=== PATIENT | female | born 1975 | race Caucasian/White ===

== ENCOUNTER 2017-09-01 07:15 | Inpatient (IN) | payer MEDICAID ==
[2017-09-01] MEDS ORDERED: Acetaminophen 500 MG Tab PO ONE (09:45)
[2017-09-01] MEDS ORDERED: Celecoxib 200 MG Cap PO ONE (09:45)
[2017-09-01] MEDS ORDERED: Scopolamine 1.5 MG Transdermal Patch TRDERM SCH (09:45)
[2017-09-01] MEDS ORDERED: Gabapentin 300 MG Cap PO ONE (09:45)
[2017-09-01] MEDS ORDERED: Dextrose 5%-Lactated Ringers 1,000 ML IV SCH (10:15)
[2017-09-01] MEDS ORDERED: cefOXitin 2 GM in Sodium Chloride 0.9% 50 ML IV ONE (11:00)
[2017-09-01] MEDS ORDERED: Ropivacaine 53 ML, Dexamethasone 8 MG, EPINEPHrine 0.4 MG, Sodium Chloride 0.9% 24.6 ML NERVRT SCH ×4 (11:15)
[2017-09-01] MEDS ORDERED: Lidocaine 0.4%/D5W 2 GM/500 ML BAG IV SCH (11:15)
[2017-09-01] MEDS ORDERED: Ketamine 500 MG/5 ML MDV IV SCH (11:15)
[2017-09-01] MEDS ORDERED: Lidocaine 2% 100 MG/5 ML Syringe IVPUSH ONE (11:15)
[2017-09-01] MEDS ORDERED: Glycopyrrolate 0.2 MG/ML 5 ML MDV ONE (11:24)
[2017-09-01] MEDS ORDERED: Propofol 200 MG/20 ML SDV ONE (11:24)
[2017-09-01] MEDS ORDERED: Dexamethasone 4 MG/ML SDV ONE (11:24)
[2017-09-01] MEDS ORDERED: Ondansetron 4 MG/2 ML SDV ONE (11:24)
[2017-09-01] MEDS ORDERED: Rocuronium 50 MG/5 ML Vial ONE (11:24)
[2017-09-01] MEDS ORDERED: Neostigmine Methylsulfate 1 MG/ML 5 ML Syringe ONE (11:24)
[2017-09-01] MEDS ORDERED: Succinylcholine 200 MG/10 ML MDV ONE (11:24)
[2017-09-01] MEDS ORDERED: cefOXitin 2 GM Vial ONE (11:48)
[2017-09-01] MEDS ORDERED: diphenhydrAMINE 50 MG/ML SDV IVPUSH PRN (15:00)
[2017-09-01] MEDS ORDERED: Ondansetron 4 MG/2 ML SDV IVPUSH PRN (15:00)
[2017-09-01] MEDS ORDERED: Labetalol 20 MG/4 ML Syringe IVPUSH PRN (15:00)
[2017-09-01] MEDS ORDERED: hydrOXYzine HCl 100 MG/2 ML SDV IM PRN (15:00)
[2017-09-01] MEDS ORDERED: Metoclopramide 10 MG/2 ML SDV IVPUSH PRN (15:00)
[2017-09-01] MEDS: Acetaminophen Soln 650 MG/20.3 ML UD Cup PO SCH ×2 (15:10→21:26)
[2017-09-01] MEDS: Pantoprazole 40 MG Vial IVPUSH SCH (15:16)
[2017-09-01] MEDS: MVI, Adult with Vitamin K 10 ML, Thiamine 200 MG, Chromium/Copper/Mang/Selen/Zn 1 ML in... IV SCH ×4 (16:20)
[2017-09-01] MEDS: cefOXitin 2 GM in Sodium Chloride 0.9% 50 ML IV SCH (17:33)
[2017-09-01] MEDS: Heparin Sodium 5,000 Units/ML Vial SUBCUT SCH (17:33)
[2017-09-01] MEDS: Gabapentin 250 MG/5 ML Solution ML 470 ML Bottle PO SCH (20:02)
[2017-09-01] MEDS: Dextrose 5%-Lactated Ringers 1,000 ML IV SCH (22:33)
[2017-09-02] MEDS: cefOXitin 2 GM in Sodium Chloride 0.9% 50 ML IV SCH ×3 (00:21→10:41)
[2017-09-02] MEDS: Acetaminophen Soln 650 MG/20.3 ML UD Cup PO SCH ×4 (03:37→21:53)
[2017-09-02] MEDS ORDERED: Iohexol 647 MG/ML 50 ML SDV PO STA (03:47)
[2017-09-02] MEDS: Dextrose 5%-Lactated Ringers 1,000 ML IV SCH (04:53)
[2017-09-02] MEDS: Heparin Sodium 5,000 Units/ML Vial SUBCUT SCH ×2 (05:42→17:40)
[2017-09-02] MEDS ORDERED: Ondansetron 4 MG Tab.DIS PO PRN (07:27)
[2017-09-02] MEDS ORDERED: Dextrose 5%-Lactated Ringers 1,000 ML IV SCH (07:30)
[2017-09-02] MEDS: Celecoxib 200 MG Cap PO SCH (08:06)
--- NOTE | 2017-09-02 08:19 | PN ---
DATE OF SERVICE: 09/02/2017 SUBJECTIVE: Sheyla is postop day 1 following a Genesis-en-Y gastric bypass surgery. Her upper GI was normal this morning. Lidocaine was discontinued due to double vision and dizziness. She has been up ambulating. Vital signs have been stable. Oral intake was 340. REVIEW OF SYSTEMS: Remainder of review of systems negative for any pertinent positives and negatives. OBJECTIVE: GENERAL: Sheyla Bergeron is a pleasant 41-year-old female. She is sleepy. VITAL SIGNS: No temperature has been taken since 1900 yesterday and it was 99.6, pulse at 0600 today was 102, respirations 16, blood pressure 132/82. HEENT: Negative. NECK: Supple. HEART: Regular rate and rhythm. LUNGS: Clear. ABDOMEN: Dressings dry and intact. Abdominal binder is on. STALIN drain is intact and has drained 20 mL of a light pink serosanguineous drainage. EXTREMITIES: Without peripheral edema. 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 Date of surgery 09/01/2017, Pa Powers MD. PLAN: 1. Start step 2 with no cereal gastric bypass diet. 2. Decrease IV to 100 mL per hour. 3. Dressing off, may shower. 4. Good pulmonary toilet. 5. Give the patient three med cups to drink one every 20 minutes totaling three per hour to ensure adequate oral intake. 6. Zofran 4 mg ODT q.4 h. p.r.n. nausea. 7. We will evaluate p.r.n. or in a.m. Krystle Estrada PA-C /[id number]
[2017-09-02] MEDS: SCOPOLAMINE PATCH CHECK TOP SCH (08:55)
[2017-09-02] MEDS: Gabapentin 250 MG/5 ML Solution ML 470 ML Bottle PO SCH ×3 (08:55→20:58)
--- NOTE | 2017-09-02 11:22 | CR ---
Upper GI limited Clinical history: Status post Genesis-en-Y Findings: 2 views of the abdomen show contrast in the distal esophagus and gastric remnant and small bowel. There is no evidence of extravasation. There is no evidence of obstruction. On the delayed adalgisa ge there is contrast in the distal small bowel. There is a surgical drain in the left upper quadrant. Impression: Status post Genesis-en-Y with no evidence of obstruction or leakage.
[2017-09-02] MEDS: MVI, Adult with Vitamin K 10 ML, Thiamine 200 MG, Chromium/Copper/Mang/Selen/Zn 1 ML in... IV SCH ×4 (15:00)
[2017-09-02] MEDS: Pantoprazole 40 MG Vial IVPUSH SCH (15:04)
[2017-09-03] MEDS: Heparin Sodium 5,000 Units/ML Vial SUBCUT SCH (05:10)
[2017-09-03] MEDS: Acetaminophen Soln 650 MG/20.3 ML UD Cup PO SCH (05:10)
[2017-09-03] MEDS: Celecoxib 200 MG Cap PO SCH (08:12)
[2017-09-03] MEDS: Gabapentin 250 MG/5 ML Solution ML 470 ML Bottle PO SCH (08:13)
[2017-09-03] MEDS: SCOPOLAMINE PATCH CHECK TOP SCH (08:15)
[2017-09-03] MEDS ORDERED: Cyanocobalamin (Vitamin B12) 1,000 MCG/ML SDV IM ONE (09:00)
--- NOTE | 2017-09-03 13:26 | DISCH ---
ADMISSION DIAGNOSES: Morbid obesity, depression, menorrhagia. 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 DATE OF SURGERY: 09/01/2017. SURGEON: Pa Powers MD. HISTORY: Sheyla is a pleasant 41-year-old female with longstanding history of morbid obesity and increasing comorbidities. After preoperative evaluation, discussion of possible risks and possible complications, she wished to proceed with surgical procedure. HOSPITAL COURSE: Sheyla had her surgery on 09/01/2017. She had no operative complications. On postop day #1, she was started on step-2 gastric bypass diet. Dressing was off and she was able to shower and changed to oral pain medication. Her lidocaine was discontinued during the night due to double vision and dizziness, and that quickly resolved. On postop day #2, activity was good. Vital signs stable. Oral intake adequate. She received dietary instruction and was able to be discharged to home. PHYSICAL EXAMINATION: GENERAL: Sheyla Bergeron is a 41-year-old female. VITAL SIGNS: Height is 5 feet 6 inches. Weight is 231 pounds. BMI is 37. TPR 98.4, 91, 16, blood pressure 129/81. HEENT: Negative. NECK: Supple. HEART: Regular rate and rhythm. LUNGS: Clear. ABDOMEN: Sutures in place, 4 x 4 over STALIN drain site. Abdominal binder is on. EXTREMITIES: Without peripheral edema. DISPOSITION: Discharged to home. CONDITION: Stable and improving. FOLLOWUP APPOINTMENT: Krystle Estrada PA-C, on 09/11/2017 at 10:00 a.m. HOME MEDICATIONS: 1. Tylenol 650 mg/20.3 mL cup, to take every 6 hours for 2 weeks, 1200 mL prescribed. 2. Celebrex 200 mg at 0800 p.o. daily, 14 days. 3. Milk of magnesia 30 mL cup, two were sent home with the patient, to take one today and one tomorrow. 4. Ondansetron/Zofran ODT 4 mg sublingual q.4 h. p.r.n. nausea, #30. DISCHARGE DIET: Step 2 gastric bypass with no cereal for 2 weeks until 09/16/2017. SHOWER/BATHING: October shower. DISCHARGE INSTRUCTIONS: Notify provider if any fever, increased pain, nausea, or vomiting. Wound incision care. Keep site clean and dry. Wear abdominal binder for 2 weeks and then as tolerated. SPECIAL INSTRUCTIONS: Use incentive spirometer 10 times every hour while awake for 2 weeks. Keep a journal of liquid protein intake and bring to clinic appointments.
[2017-09-03] MEDS ORDERED: Pantoprazole 40 MG Delayed-Release Granules 1 Packet PO SCH (16:30)
--- NOTE | 2017-09-10 08:05 | OR ---
DATE OF PROCEDURE: 09/01/2017 PREOPERATIVE DIAGNOSIS: Morbid obesity. POSTOPERATIVE DIAGNOSES: 1. Morbid obesity. 2. Marked hepatomegaly. 3. Paraesophageal diaphragmatic hernia. 4. 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 OPERATIVE PROCEDURE: 1. Laparoscopic Genesis-en-Y gastric bypass with long limb gastroenterostomy (33843). 2. Benjamin-Cut needle liver biopsy (44440). 3. Repair of paraesophageal diaphragmatic hernia (69752). 4. Resection of a gastric fundus involved by probable gastrointestinal stromal tumor (17501). ANESTHESIA: General. DUTY ENGINEER: Krystle Estrada PA-C INDICATIONS FOR PROCEDURE: A 41-year-old female presenting with longstanding morbid obesity and increasingly significant comorbidities. After preoperative evaluation and discussion, she wished to proceed with a gastric bypass procedure. Potential risks of the procedure including bleeding, infection, injury to underlying viscera, problems with bowel obstruction over time, as well as possibility of cardiopulmonary, septic, or hemorrhagic complications leading to were all discussed, and the patient wishes to proceed. DETAILS OF PROCEDURE: The patient was taken to the operating room and placed in a supine position. After general endotracheal anesthesia was induced, converted to a lithotomy position. An orogastric tube was then placed and along with the abdomen being prepped and draped. At 15 cm inferior, 5 cm left of xiphoid process, a transverse incision was made and the peritoneal cavity entered under direct vision with an Optiview trocar and inflated to 15 mmHg pressure of CO2. Laparoscope was then reinserted. No underlying trocar insertion site injuries were seen. Following this, bilateral subcostal transversus abdominis plane blocks were placed using standard solution with direct visualization of the needle tip in the transverse abdominis muscle plane. Following this, 5 additional trocars were placed across her upper mid abdomen and then general exploration was undertaken. The patient was noted to have a marked hepatomegaly with liver volume being roughly 2 to 3 times normal and liver grossly fatty infiltrated. Benjamin-Cut needle biopsy was obtained from the left lobe of the liver and minimal bleeding from the biopsy sites was controlled with electrocautery. Following this, the omentum was divided in the midline up to the level of the transverse colon. This allowed identification of the small bowel to the ligament of Treitz. The small bowel was then traced out 200 cm distal to that point, where it was divided with a WESLEY stapler. The small bowel was then traced out an additional 200 cm, where the [id number] enteroenterostomy was accomplished with internal firing of the Endo-WESLEY 60 mm stapler. The common opening was then closed transversely with the same stapler, angles anastomosed, and the mesenteric defect approximated with some 0 Ethibond stitch, along with fibrin sealant. The divided end of the Genesis limb was then from the mesentery for a few centimeters, which allowed antecolic positioning of the Genesis limb up to the level of the gastroesophageal junction without tension. The liver was then retracted anteriorly. The patient was noted to have a moderate-sized paraesophageal diaphragmatic hernia. In addition to this, in the lateral gastric fundus anteriorly, there was a roughly 1 cm mass on the stomach wall, suggestive of a small gastrointestinal stromal tumor (GIST). At that point, the peritoneum over the diaphragmatic hernia was divided and the hernia reduced. The hernia was then repaired anteriorly with a series of 0 Ethibond sutures, reinforced with PTFE pledgets. The gastrointestinal balloon catheter was then inflated to 15 mL and pulled up snugly against the EG junction. The stomach was pulled down and the pouch was initiated, after dissection behind the stomach on the lesser curvature side, with a transverse firing being over the cauterized salvatore in the gastric cardia. The pouch was then completed with additional firings of WESLEY stapler up to and through the angle of His. Upon completion of the pouch, both staple lines were noted to be intact. 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 This, on the initial staple line from the pouch, was several centimeters away from it, i.e. enough margin was present in that direction and the stomach was then sequentially divided around the GIST, maintaining at least a 4 cm margin, and that specimen of the stomach placed into a specimen bag and retrieved through the left lateral trocar site. At this point, the anvil of a 25 mm EEA stapler was attached to [place] sump type tube. The latter was brought down through the mouth and taken out a small opening in the gastric pouch, allowing the anvil likewise to be pulled down to within the gastric pouch. The divided end of the Genesis limb was then opened and the main body of the EEA stapler passed several centimeters in the lumen of the small bowel, brought up the anvil and united with it, thus creating the gastrojejunostomy. Upon removal of the stapler, double donuts of mucosa were noted within it, and the small bowel was closed off with a vascular staple line. Gastrojejunostomy was then reinforced with some 3-0 Vicryl seromuscular stitch, along with fibrin sealant. A leak test was accomplished with injection of 120 mL of air into the gastric pouch while submerged with cefoxitin-containing saline solution. No leaks were identified. One Douglas-Cortez drain was then placed adjacent to the gastrojejunostomy and taken out the subcostal trocar site. The trocars were then sequentially removed and the peritoneal cavity deflated. The incision was closed with 4-0 Vicryl skin stitch. This stitch was also used to affix the drain. Dressing was applied. The patient was taken to the recovery room in satisfactory condition. There were no evident complications. Physician insurance sales assistant, Krystle Estrada, played an essential role in assisting in this case, helping to position the patient, retract structures as needed, as well as suturing and cutting sutures when indicated. Her presence improved patient safety and decreased operative time. Pa Powers MD /[id number]
== END 2017-09-03 10:32 | disposition home or self-care (01) | DRG 620 ==
LOC: JP.SDSSCHI 07:15 → EDSTATUS 07:15 → JP.SDS 09:30 → JP.2SS 13:30
PROVIDERS: ADMIT Surgery; ATTEND Surgery
PROC: 0D164ZA Bypass Stomach to Jejunum, Percutaneous Endoscopic Approach (ICD-10-PCS; principal; 2017-09-01)
PROC: 0FB24ZX Excision of Left Lobe Liver, Percutaneous Endoscopic Approach, Diagnostic (ICD-10-PCS; 2017-09-01)
PROC: 0BQT4ZZ Repair Diaphragm, Percutaneous Endoscopic Approach (ICD-10-PCS; 2017-09-01)
PROC: 0DB64ZX Excision of Stomach, Percutaneous Endoscopic Approach, Diagnostic (ICD-10-PCS; 2017-09-01)
PROC: 3E0T3BZ Introduction of Anesthetic Agent into Peripheral Nerves and Plexi, Percutaneous Approach (ICD-10-PCS; 2017-09-01)
DX: E66.01 Morbid (severe) obesity due to excess calories (principal); C49.A2 Gastrointestinal stromal tumor of stomach; Z68.38 Body mass index [BMI] 38.0-38.9, adult; R16.0 Hepatomegaly, not elsewhere classified; K44.9 Diaphragmatic hernia without obstruction or gangrene; R42 Dizziness and giddiness; T41.3X5A Adverse effect of local anesthetics, initial encounter; Y92.239 Unspecified place in hospital as the place of occurrence of the external cause; H53.2 Diplopia; K76.0 Fatty (change of) liver, not elsewhere classified; N92.0 Excessive and frequent menstruation with regular cycle
CPT/HCPCS: 36415; 74240; 74240-26; 82962; 86850; 86900; 86901; 88307; 88309; 88313; 88341; 88342; 94762; A9270-GY; C9113; J0171; J0330; J0694; J1100; J1644; J2001; J2405; J2704; J2710; J2795; J3010; J3410; J3411; J3420; J7030; J7042; J7050; Q9967

== ENCOUNTER 2017-09-23 16:10 | Emergency (ER) | payer MEDICAID ==
--- NOTE | 2017-09-23 18:12 | EDM.PDOC ---
ED HPI GENERAL MEDICAL PROBLEM - General Chief Complaint: Abdominal Pain Stated Complaint: ABDOMINAL PAIN Time Seen by Provider: 09/23/17 18:12 Source of Information: Reports: Patient, Family History Limitations: Reports: No Limitations - History of Present Illness INITIAL COMMENTS - FREE TEXT/NARRATIVE: pt had a RNY done 3 weeks ago. She is struggling to eat and in enough fluids in , She had a hard stool yesterday and has only had 2 stools since she had surgery. She has not been vomiting but she has been very nauseated. Onset: Gradual, Other ( Pt thinks the pain started thursday . She has not had a fever. ) Duration: Hour(s): Location: Reports: Abdomen Associated Symptoms: Reports: Loss of Appetite, Nausea/Vomiting Bilateral Abdominal Pain Score (Numeric/FACES): 3 - Related Data Allergies Allergy/AdvReac Type Severity Reaction Status Date / Time No Known Allergies Allergy Verified 09/01/17 10:01 Home Meds: Home Meds Acetaminophen [Tylenol] 650 mg PO Q6H #1200 ml 09/03/17 [Rx] Past Medical History HEENT History: Reports: None Cardiovascular History: Reports: None Respiratory History: Reports: None Gastrointestinal History: Reports: Gastritis Genitourinary History: Reports: None [employer]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: , Spontaneous Musculoskeletal History: Reports: Fracture, Other (See Below) Other Musculoskeletal History: cubital and carpal tunnel Neurological History: Reports: None Psychiatric History: Reports: None Endocrine/Metabolic History: Reports: Obesity/BMI 30+ Hematologic History: Reports: Anemia, Iron Deficiency Immunologic History: Reports: None Oncologic (Cancer) History: Reports: None Dermatologic History: Reports: None - Infectious Disease History Infectious Disease History: Reports: Chicken Pox, Herpes - Past Surgical History Head Surgeries/Procedures: Reports: None HEENT Surgical History: Reports: None Cardiovascular Surgical History: Reports: None Respiratory Surgical History: Reports: None GI Surgical History: Reports: Bariatric Procedure, Hernia Repair/Other Other GI Surgeries/Procedures: RNY 09/01/2017 Female Surgical History: Reports: Endometrial Ablation Endocrine Surgical History: Reports: None Neurological Surgical History: Reports: None Musculoskeletal Surgical History: Reports: Shoulder Surgery Oncologic Surgical History: Reports: None Dermatological Surgical History: Reports: None Social & Family History - Family History Family Medical History: Noncontributory - Tobacco Use Smoking Status *Q: Never Smoker Second Hand Smoke Exposure: No - Caffeine Use Caffeine Use: Reports: None - Recreational Drug Use Recreational Drug Use: No ED ROS GENERAL - Review of Systems Review Of Systems: See Below Constitutional: Reports: No Symptoms HEENT: Reports: No Symptoms Respiratory: Reports: No Symptoms Cardiovascular: Reports: No Symptoms Endocrine: Reports: No Symptoms GI/Abdominal: Reports: Abdominal Pain, Other (pt is having trouble eating and is not getting enough fluid down, ) : Reports: No Symptoms Musculoskeletal: Reports: No Symptoms Skin: Reports: No Symptoms Neurological: Reports: No Symptoms ED EXAM, GI/ABD - Physical Exam Exam: See Below Text/Narrative:: pt arrived complaining of pain in the upper abdoman. She states she eats and foods just don,t set right in her stomach. She is not vomiting but she has been very nauseated. Exam Limited By: No Limitations General Appearance: Alert, Mild Distress Ears: Normal TMs Nose: Normal Inspection Throat/Mouth: Normal Inspection Head: Atraumatic Neck: Normal Inspection Respiratory/Chest: No Respiratory Distress Cardiovascular: Regular Rate, Rhythm GI/Abdominal Exam: Soft, Tender, Other (pt has tenderness in the upper abdoman. Her wounds look good. ) (Female) Exam: Deferred Rectal (Female) Exam: Deferred Back Exam: Normal Inspection Extremities: Normal Inspection Neurological: Alert, Oriented, Normal Cognition Psychiatric: Normal Affect Course - Vital Signs Last Recorded V/S: Last Vital Signs Temp 36.5 C 09/23/17 19:54 Pulse 67 09/23/17 20:46 Resp 16 09/23/17 19:54 BP 105/68 09/23/17 20:46 Pulse Ox 98 09/23/17 20:46 - Orders/Labs/Meds Labs: Laboratory Tests 09/23/17 09/23/17 09/23/17 Range/Units 18:12 18:12 18:12 WBC 6.6 (4.5-11.0) K/uL RBC 4.60 (3.30-5.50) M/uL Hgb 14.3 (12.0-15.0) g/dL Hct 41.1 (36.0-48.0) % MCV 89 (80-98) fL MCH 31 (27-31) pg MCHC 35 (32-36) % Plt Count 290 (150-400) K/uL Neut % (Auto) 63 (36-66) % Lymph % (Auto) 27 (24-44) % [place] % (Auto) 8 H (2-6) % Eos % (Auto) 2 (2-4) % Baso % (Auto) 0 (0-1) % Sodium 139 L (140-148) mmol/L Potassium 4.1 (3.6-5.2) mmol/L Chloride 103 (100-108) mmol/L Carbon Dioxide 18 L (21-32) mmol/L Anion Gap 22.1 H (5.0-14.0) mmol/L BUN 10 (7-18) mg/dL Creatinine 0.7 (0.6-1.0) mg/dL Est Cr Clr Drug Dosing 97.01 mL/min Estimated GFR (MDRD) > 60 (>60) Glucose 69 L (74-106) mg/dL Calcium 8.7 (8.5-10.1) mg/dL Total Bilirubin 0.6 (0.2-1.0) mg/dL AST 26 (15-37) U/L ALT 41 (12-78) U/L Alkaline Phosphatase 83 (46-116) U/L C-Reactive Protein 0.95 H (0.0-0.3) mg/dL Total Protein 6.7 (6.4-8.2) g/dL Albumin 3.8 (3.4-5.0) g/dL Globulin 2.9 (2.3-3.5) g/dL Albumin/Globulin Ratio 1.3 (1.2-2.2) Urine Color Urine Appearance Urine pH (4.5-8.0) Ur Specific [place] (1.008-1.030) Urine Protein (NEGATIVE) mg/dL Urine Glucose (UA) (NEGATIVE) mg/dL Urine Ketones (NEGATIVE) mg/dL Urine Occult Blood (NEGATIVE) Urine Nitrite (NEGATIVE) Urine Bilirubin (NEGATIVE) Urine Urobilinogen (NORMAL) mg/dL Ur Leukocyte Esterase (NEGATIVE) Urine RBC (0-5) Urine WBC (0-5) Ur Epithelial Cells Amorphous Sediment Urine Bacteria Urine Mucus Urine HCG, Qual 09/23/17 09/23/17 Range/Units 19:25 20:43 WBC (4.5-11.0) K/uL RBC (3.30-5.50) M/uL Hgb (12.0-15.0) g/dL Hct (36.0-48.0) % MCV (80-98) fL MCH (27-31) pg MCHC (32-36) % Plt Count (150-400) K/uL Neut % (Auto) (36-66) % Lymph % (Auto) (24-44) % [place] % (Auto) (2-6) % Eos % (Auto) (2-4) % Baso % (Auto) (0-1) % Sodium (140-148) mmol/L Potassium (3.6-5.2) mmol/L Chloride (100-108) mmol/L Carbon Dioxide (21-32) mmol/L Anion Gap (5.0-14.0) mmol/L BUN (7-18) mg/dL Creatinine (0.6-1.0) mg/dL Est Cr Clr Drug Dosing mL/min Estimated GFR (MDRD) (>60) Glucose (74-106) mg/dL Calcium (8.5-10.1) mg/dL Total Bilirubin (0.2-1.0) mg/dL AST (15-37) U/L ALT (12-78) U/L Alkaline Phosphatase (46-116) U/L C-Reactive Protein (0.0-0.3) mg/dL Total Protein (6.4-8.2) g/dL Albumin (3.4-5.0) g/dL Globulin (2.3-3.5) g/dL Albumin/Globulin Ratio (1.2-2.2) Urine Color Yellow Urine Appearance Slightly cloudy Urine pH 5.0 (4.5-8.0) Ur Specific [place] 1.030 (1.008-1.030) Urine Protein Negative (NEGATIVE) mg/dL Urine Glucose (UA) Normal (NEGATIVE) mg/dL Urine Ketones 150 H (NEGATIVE) mg/dL Urine Occult Blood Negative (NEGATIVE) Urine Nitrite Negative (NEGATIVE) Urine Bilirubin Small (NEGATIVE) Urine Urobilinogen 1 (NORMAL) mg/dL Ur Leukocyte Esterase Small (NEGATIVE) Urine RBC 0-5 (0-5) Urine WBC 0-5 (0-5) Ur Epithelial Cells Moderate Amorphous Sediment Not seen Urine Bacteria Rare Urine Mucus Moderate Urine HCG, Qual Negative Meds: Medications Discontinued Medications Generic Name Dose Route Start Last Admin Trade Name Freq PRN Reason Stop Dose Admin Sodium Chloride 1,000 mls @ 999 mls/hr 09/23/17 18:15 09/23/17 18:36 Normal Saline IV 999 mls/hr ASDIRECTED BLAKE Administration Sodium Chloride 1,000 mls @ 999 mls/hr 09/23/17 19:00 09/23/17 19:57 Normal Saline IV 999 mls/hr ASDIRECTED BLAKE Administration Sodium Chloride 80 mls @ 3 mls/sec 09/23/17 19:00 09/23/17 19:27 Normal Saline IV 3 mls/sec ASDIRECTED BLAKE Administration Iopamidol 145 ml 09/23/17 19:00 09/23/17 19:27 Isovue-300 (61%) IV 145 ml . DIRECTED BLAKE Administration Ondansetron HCl 4 mg 09/23/17 18:13 09/23/17 18:37 Zofran IVPUSH 09/23/17 18:14 4 mg ONETIME ONE Administration Sodium Chloride 10 ml 09/23/17 18:58 09/23/17 19:27 Saline Flush FLUSH 10 ml ASDIRECTED PRN Administration Keep Vein Open - Re-Assessments/Exams Free Text/Narrative Re-Assessment/Exam: 09/23/17 21:55 pt had a cat scn of the abdoman which showed a 4 cm cyst in left adnexa, the rest of the cat scan was normal. Dr Powers was consulted and he wants to do a gastro and possible dilatation. Departure - Departure Time of Disposition: 21:46 Disposition: Home, Self-Care 01 Condition: Fair Clinical Impression: Complications of gastric bypass surgery, Left ovarian cyst, Dehydration - Discharge Information Instructions: Dehydration, Adult, [id number], Abdominal Pain, Adult, Easy-to- Read, Ovarian Cyst, [id number] Referrals: PCP,None [Primary Care Provider] - Forms: ED Department Discharge Care Plan Goals: rtc at 8am for a gastro and possible dilation. npo after midnight, leave iv in place so she has it for tomorrow, zoforan 4mg subling for nausea, rtc if things should get worse. follow up with her family physian regarding the 4 cm ovarian cyst on the left.
[2017-09-23] MEDS ORDERED: Ondansetron 4 MG/2 ML SDV IVPUSH ONE (18:13)
[2017-09-23] MEDS ORDERED: Sodium Chloride 0.9% 1,000 ML IV SCH ×2 (18:15→19:00)
[2017-09-23] MEDS ORDERED: Sodium Chloride 0.9% 10 ML Syringe FLUSH PRN (18:58)
[2017-09-23] MEDS ORDERED: Sodium Chloride 0.9% 80 ML IV SCH (19:00)
[2017-09-23] MEDS ORDERED: Iopamidol 612 MG/ML 150 ML Bottle IV SCH (19:00)
== END 2017-09-23 22:30 | disposition home or self-care (01) ==
LOC: JP.ED 16:10
DX: N83.202 Unspecified ovarian cyst, left side (principal); K95.89 Other complications of other bariatric procedure; E86.0 Dehydration; Z98.84 Bariatric surgery status
CPT/HCPCS: 36415; 74177; 76830; 76856; 80053; 81001; 81025; 85025; 86140; 96361; 96374; 99284; J2405; J7030; J7040; J7050

== ENCOUNTER 2017-09-24 07:11 | Day surgery (SDC) | payer MEDICAID ==
[~2017-09-24 07:11] MED LIST: Acetaminophen Soln 650 MG/20.3 ML UD Cup PO SCH; Cyanocobalamin (Vitamin B12) 1,000 MCG/ML SDV IM ONE; Glycopyrrolate 0.2 MG/ML 2 ML SDV IVPUSH ONE; Lactated Ringers 1,000 ML IV SCH; MVI, Adult with Vitamin K 10 ML, Thiamine 200 MG, Chromium/Copper/Mang/Selen/Zn 1 ML in... IV ONE
[2017-09-24] MEDS ORDERED: Propofol 200 MG/20 ML SDV ONE (07:31)
[2017-09-24] MEDS ORDERED: Midazolam 1 MG/ML 2 ML SDV ONE (07:31)
[2017-09-24] MEDS ORDERED: fentaNYL 100 MCG/2 ML SDV ONE (07:31)
[2017-09-24] MEDS ORDERED: Ondansetron 4 MG/2 ML SDV ONE (08:58)
[2017-09-24] MEDS ORDERED: Dexamethasone 4 MG/ML SDV ONE (08:58)
[2017-09-24] MEDS ORDERED: MVI, Adult with Vitamin K 10 ML, Thiamine 100 MG, Chromium/Copper/Mang/Selen/Zn 1 ML in... IV ONE ×4 (09:00)
[2017-09-24] MEDS ORDERED: Pantoprazole 40 MG Vial IVPUSH ONE (09:15)
[2017-09-24] MEDS ORDERED: Alum Hydrox/Mag Hydrox/Simeth 360 ML, Lidocaine 2% 60 ML PO PRN ×2 (10:50)
--- NOTE | 2017-09-30 12:58 | OR ---
DATE OF PROCEDURE: 09/24/2017 PREOPERATIVE DIAGNOSIS: Dysphagia, status post Genesis-en-Y gastric bypass. POSTOPERATIVE DIAGNOSIS: Dysphagia, status post Genesis-en-Y gastric bypass with large deep marginal ulcer (no stricture). OPERATIVE PROCEDURES: Upper GI endoscopy with biopsies of gastric pouch for CLOtest. ANESTHESIA: IV sedation. INDICATION FOR PROCEDURE: This is a 41-year-old status post recent Genesis-en-Y gastric bypass, presenting with some epigastric pain and dysphagia. Plan is to proceed with upper GI endoscopy with biopsies and/or dilation as indicated. Potential risks including bleeding and perforation were discussed, and the patient wishes to proceed. DETAILS OF PROCEDURE: The patient was taken to the operating room and placed in a left lateral decubitus position. IV sedation was administered, after which the upper GI endoscope was passed orally through the length of the esophagus and into the gastric pouch, and from there through the gastrojejunostomy roughly 20 cm into the Genesis limb. Findings included normal esophagus and EG junction area. The gastric pouch likewise had a little bit of edema. The most striking finding was a quite deep and large marginal ulcer in the posterior aspect of the area of the gastrojejunostomy extending onto the jejunum. This was covered with fibrinous exudate. No bleeding was seen, and the scope easily passed through the area of the anastomosis, i.e. there was no stricture per se. Biopsies were then obtained from the gastric pouch and sent for CLOtest for H. pylori. Minimal bleeding from the biopsy sites was seen, and the procedure then concluded. The patient will be given Protonix 40 mg IV in the recovery room and to begin 40 mg daily. Also, we will give the patient a compound of 2 ounces of viscous xylocaine with 12 ounces of Mylanta to be taken p.r.n. for epigastric discomfort. She had been on Celebrex perioperatively, but that has been stopped several days ago, and she will be instructed to not restart any nonsteroidal anti-inflammatory medications. The patient is scheduled for a followup appointment with Krystle Estrada in roughly 2 weeks. Pa Powers MD /[id number]
== END 2017-09-24 11:24 | disposition home or self-care (01) ==
LOC: JP.SDS 07:11
PROVIDERS: ATTEND Surgery
DX: K28.9 Gastrojejunal ulcer, unspecified as acute or chronic, without hemorrhage or perforation (principal); Z98.84 Bariatric surgery status
CPT/HCPCS: 43239; 87081; A9270; C9113; J1100; J2250; J2405; J2704; J3010; J3411; J3420; J7120; J3490